=== PATIENT | female | born 1935 | race Caucasian/White ===

== ENCOUNTER 2016-10-08 05:58 | Inpatient (IN) | payer BC, OTHER ==
[2016-09-25 16:24] LABS: BASOPHILS 0.5 %; BASOPHILS ABSOLUTE 0.04 10/3/uL (0.0-0.16); EOSINOPHILS 1.2 %; EOSINOPHILS ABSOLUTE 0.09 10/3/uL (0.0-0.53); IMMATURE GRANULOCYTES 0.3 %; IMMATURE GRANULOCYTES ABSOLUTE 0.02 10/3/uL (0.0-0.11); LYMPHOCYTES 22.5 %; LYMPHOCYTES ABSOLUTE 1.75 10/3/uL (0.67-4.30); MEAN CORPUS HGB CONC 34.1 g/dL (32.0-36.0); MEAN CORPUSCULAR HEMOGLOB 29.4 pg (26.0-34.0); MEAN CORPUSCULAR VOLUME 86.3 fL (80-100); MONOCYTES 6.3 %; MONOCYTES ABSOLUTE 0.49 10/3/uL (0.21-1.20); NEUTROPHILS 69.2 %; PLATELET COUNT 208 10/3/uL (150-400); RBC DISTRIBUTION WIDTH 13.8 % (12.0-16.0); RED CELL COUNT 4.76 10/6/uL (4.0-5.6); WHITE BLOOD CELLS 7.8 10/3/uL (4.5-10.5)
[2016-09-25 16:28] LABS: HEMATOCRIT 41.1 % (36.0-48.0); MANUAL DIFF NO %
[2016-09-25 16:33] LABS: INTERNATIONAL NORMAL RATI 1.1 UNITS (-); PROTIME (NOT ORD) 13.8 SEC (12.0-14.5)
[2016-09-25 16:48] LABS: A/G RATIO 1.1 (0.7-1.9); ALKALINE PHOSPHATASE 83 U/L (45-117); BUN (BLOOD UREA NITROGEN) 24 MG/DL (6-23); CALCIUM, SERUM 9.2 MG/DL (8.5-10.4); CHLORIDE, SERUM 105 MMOL/L (96-112); CO2 (CARBON DIOXIDE) 30 MMOL/L (24-34); CREATININE 0.89 MG/DL (0.55-1.02); GFR AFRICAN AMERICAN 70 ML/MIN (>=60); GFR NON AFRICAN AMERICAN 61 ML/MIN (>=60); GLOBULIN 3.7 G/DL (2.5-4.1); GLUCOSE, SERUM 90 MG/DL (60-99); POTASSIUM, SERUM 4.1 MMOL/L (3.5-5.3); SGOT(AST) 13 U/L (5-40); SGPT(ALT) 23 U/L (5-65); SODIUM, SERUM 142 MMOL/L (135-148); TOTAL BILIRUBIN 0.5 MG/DL (0-1.2); TOTAL PROTEIN 7.7 G/DL (6.0-8.5)
[2016-09-25 17:45] LABS: ASCORBIC ACID (UR NOT ORDER) NEG (NEG); BILIRUBIN, URINE NEGATIVE (NEG); KETONE, URINE NEGATIVE (NEG); LEUKOCYTE ESTERASE(NOT OR NEG (NEG); WBC (NOT ORDERED) (RFLEX) 2 (0-5)
--- NOTE | ~2016-10-08 | OP ---
Record Of Operation [facility] [address] [place]. [address] NAME: RAYMUNDO RUEDA : 35 STATUS : ADM IN PAT#: [id number] AGE: 81 ADM/REG DATE : 10/08/16 MR#: [id number] REPORT SERV DATE: 10/08/16 DICTATED BY: CARLIE REBOLLEDO DATE: 10/08/16 REPORT STATUS : Draft TRANSCRIBED BY: MODLexie DATE: 10/08/16 DATE OF PROCEDURE: 10/08/2016 PREOPERATIVE DIAGNOSIS: Severe right hip degenerative joint disease. POSTOPERATIVE DIAGNOSIS: Severe right hip degenerative joint disease. PROCEDURE: Uncemented total hip arthroplasty, Tri-Lock. SIDE: Right. RESPIRATORY CARE ASSISTANT: ANESTHESIA: See chart. SIZE: See chart. ESTIMATED BLOOD LOSS: About 100 mL. INDICATIONS FOR SURGERY: PROCEDURE IN DETAIL: The patient was taken to the operating room and placed supine on the table without incident. Anesthetic was induced per the anesthesiologist. A Kimball catheter was placed by the nurse in the standard sterile technique. The correct side for the procedure was identified by preoperative markings and matched with the consent form. All personnel in the room were in agreement regarding the procedure, patient, and side. The patient was then carefully positioned and carefully padded and prepped and draped in the normal sterile fashion. The patient received prophylactic preoperative antibiotics at the appropriate time. The preoperative x-ray was brought up on the monitor. Again, this was reviewed with the staff in the room. According with the preoperative plan, and angled, an anterolateral incision was made centered over the trochanter extending from proximal posterior to distal anterior. Electrocautery was used to maintain meticulous hemostasis. The IT band was split in line with its fibers. A Charnley retractor was placed over saline moistened laps. A standard anterolateral approach to the hip was carried out dissecting in line with the vastus medialis fibers lifting the inferior 20% of the vastus medialis, proximally the interior 20% of the gluteus medius and gluteus minimus tendons off the anterior capsule. Periosteal elevator was used to elevate soft tissue gently directly off the proximal anterior femoral bone. Appropriate retractors were carefully placed. Complete anterior capsulectomy was performed. The hip was then carefully dislocated with a combination of traction maneuver by the physician assistant primary care and scooping the ball out of the socket with a Hohmann. A femoral neck osteotomy was marked according to what had been preoperatively planned with a broach as a template. The distance for the femoral neck osteotomy was measured with a ruler. A femoral neck osteotomy was made with an oscillating saw under appropriate retraction. Meticulous hemostasis was again obtained. The leg was then brought up out of the anterior bag and Record Of Operation [facility] [id number] [place]. [address] NAME: RAYMUNDO RUEDA : 35 STATUS : ADM IN PAT#: [id number] AGE: 81 ADM/REG DATE : 10/08/16 MR#: [id number] REPORT SERV DATE: 10/08/16 DICTATED BY: CARLIE REBOLLEDO DATE: 10/08/16 REPORT STATUS : Draft TRANSCRIBED BY: PATITO DATE: 10/08/16 positioned with the lower extremity in external rotation and slight flexion. Acetabular retractors were placed carefully palpating to be sure that they were directly on the bone. The acetabular labrum was excised with electrocautery and rongeur. Pulvinar fat was removed with a large curette and rongeur and again meticulous hemostasis was obtained. Sequential reamers were used in the acetabulum to 1 mm. less than the final size which was chosen. This was felt to give excellent interference fit. The acetabular fossa was then copiously irrigated with pulsatile lavage and actual acetabular component was placed and impacted and checked to make sure it was down snug. The overall alignment was checked. The acetabular acid supervisor was then removed. Screws were placed in the standard fashion. A drill, depth gauge and self tapping screw placement taking care not to plunge as the drill holes were carefully placed. A trial liner was then placed and attention directed back to the proximal femur. The leg was placed back into the anterior bag. The proximal femur was prepared using a box chisel following by a T-handled reamer to determine the intramedullary alignment. This was followed by sequential broaches up to the final broach. Once it was seated in the appropriate position, a Calcar reamer was used to plane the proximal femur. Trial reduction was then done with a trial prosthetic ball and neck. A straight edge was used to compare the tip of the trochanter to center of the ball relationship to what had been noted on the preoperative x-ray. Careful reduction was then done of the total hip. Palpation was done to ascertain and compare leg lengths by palpating the nonoperative leg and also by checking soft tissue tension. The stability of the hip was checked in full extension with full external rotation and in full flexion with adduction, flexion and internal rotation. The hip was then redislocated with a bone hook. The femoral trial and femoral broach were removed. The acetabulum was then prepared under appropriate retraction by removing the trial liner. A central hole eliminator was placed and tightened. The shell was irrigated out. The actual insert was placed and impacted and then checked to be sure it was down snug with a joker. The leg was again positioned in the bag. The proximal femur exposed, irrigated and the actual thermal prosthesis was taken from the compliance representative dealer and impacted. Once it was down, the trunnion was cleansed with a wet and dry lap and the prosthetic thermal head was placed and impacted and checked to be sure it was down snug. The acetabulum was irrigated and reduction was obtained. Again, we checked soft tissue tension, leg length and stability as described above. The hip was closed in a layered fashion with a 5 mm. Mersilene tape placed through a single drill hole in the proximal anterior/superior trochanter reattaching the gluteus medius and minimus fibers. The vastus lateralis, gluteus medius, and gluteus minimus were then closed in a sleeve. Drain was placed between the vastus and the IT band exiting distally anteriorly. The IT band was closed. Subcutaneous closure and skin closure were then obtained. A sterile dressing was applied. The patient was carefully positioned into a supine position and then awakened. The patient was then carefully transferred to the stretcher to be returned to the postoperative care unit without incident. COMPLICATION: None. SPECIMENS: Right femoral head. Record Of Operation [place] [id number] [facility] [place] [place]. [address] NAME: RAYMUNDO RUEDA Lisa : 35 STATUS : ADM IN [facility]#: [id number] AGE: 81 ADM/REG DATE : 10/08/16 MR#: [id number] REPORT SERV DATE: 10/08/16 DICTATED BY: CARLIE REBOLLEDO DATE: 10/08/16 REPORT STATUS : Draft TRANSCRIBED BY: PATITO DATE: 10/08/16 WTB/MODL Pamella Rebolledo M.D. / [id number] CC: Pamella Rebolledo M.D.
--- NOTE | ~2016-10-08 | DS ---
Discharge Summary [facility] [address] [place]. [address] NAME: RAYMUNDO RUEDA : 35 STATUS : DIS IN PAT#: [id number] AGE: 81 ADM/REG DATE : 10/08/16 MR#: [id number] REPORT SERV DATE: 10/22/16 DICTATED BY: CARLIE REBOLLEDO DATE: 10/22/16 REPORT STATUS : Draft TRANSCRIBED BY: PATITO DATE: 10/22/16 Data Collection from hospitalization DISCHARGE DIAGNOSES: 1. Severe right hip degenerative joint disease. 2. Hypertension. 3. Adult-onset diabetes mellitus. 4. Anxiety disorder. 5. Former smoker. CONSULTATIONS: None. PROCEDURES: Uncemented total hip arthroplasty, Tri-Lock, 10/08/2016. PATHOLOGY: Femoral head, right hip joint replacement-marked articular changes of osteoarthritis, hematopoietic elements were present and showed trilineage maturation. No evidence of infection or tumor. DISCHARGE MEDICATIONS: Xanax 1 mg twice a day as needed; vitamin B12, 1000 mcg sublingually daily; hydrochlorothiazide 25 mg daily; [place] 5/325 one tablet every four to six hours as needed; Glucophage 500 mg with breakfast and supper; Zofran 4 mg every six hours as needed; Ultram 50 mg every six hours as needed; Coumadin 2.5 mg daily. She was instructed not to continue Goody's headache powders. CONDITION ON DISCHARGE: Stable. DISPOSITION: The patient was discharged home to be followed by Home Health Care on an 1800- calorie diabetic diet with activities as instructed. She would follow up with me two weeks following discharge. HOSPITAL COURSE: This is an 81-year-old female, who had complaints of gamna-ow-idjqis intermittent right knee pain as well as myglp-ii-avvkku intermittent right hip pain. The approximate date of onset was three years. The location of the knee pain is mediolateral across the patella and behind the knee. The location of the hip pain is anterior/groin posterior and greater trochanter. The patient has severe right hip degenerative joint disease. Treatment options were discussed, and it was elected to proceed with surgical intervention. She was admitted to the hospital at this time for further evaluation and treatment. Upon admission, the patient was taken to the operating room, where she underwent the abovementioned procedure, she tolerated this well, and there were no complications. On postop day one, she was evaluated by Occupational and Physical Therapy. She was up, sitting in a bedside chair. She did complain of some nausea that morning. Sliding scale insulin was provided. Xanax was being given for her anxiety. Hydrochlorothiazide was continued. On postop day two, her confusion had improved. She had some nausea, which was better at this time. OBI hose were in place. Metformin was continued as well. Over the next couple of days, she continued to progress. Discharge planning was performed. On 10/12/2016, discharge instructions were given. Due to her improved and stable condition, she was Discharge Summary [address] [address] NAME: RAYMUNDO RUEDA : 35 STATUS : DIS IN PAT#: [id number] AGE: 81 ADM/REG DATE : 10/08/16 MR#: [id number] REPORT SERV DATE: 10/22/16 DICTATED BY: CARLIE REBOLLEDO DATE: 10/22/16 REPORT STATUS : Draft TRANSCRIBED BY: PATITO DATE: 10/22/16 discharged home to be followed by Home Health Care with the above-stated instructions. Information collected by: Kiara Santamaria I submit the above information as my discharge summary. JUN/PATITO Pamella Rebolledo M.D. / [id number] CC: Judah Gutiérrez M.D.
[~2016-10-08 05:58] MED LIST: ESTROGEN IM; FISH-EPA1000 MG PO; GLUCPH PO; GOODY'S EX-STR1 EAC1 PO; HYDROCHLOROT25 MG PO; MACRO50B PO; NORCO1 TA1 PO; NORV10 PO; VITAMIN B-121000 MC1 SL; XANAX1 MG PO
[2016-10-09 05:33] LABS: HEMATOCRIT 29.1 % (36.0-48.0); HEMOGLOBIN 9.5 g/dL (12.0-16.0)
[2016-10-09 05:38] LABS: INTERNATIONAL NORMAL RATI 1.3 UNITS (-); PROTIME (NOT ORD) 15.6 SEC (12.0-14.5)
[2016-10-09 05:45] LABS: CALCIUM, SERUM 8.3 MG/DL (8.5-10.4); CHLORIDE, SERUM 102 MMOL/L (96-112); CO2 (CARBON DIOXIDE) 33 MMOL/L (24-34); CREATININE 1.02 MG/DL (0.55-1.02); GFR AFRICAN AMERICAN 60 ML/MIN (>=60); GFR NON AFRICAN AMERICAN 52 ML/MIN (>=60); POTASSIUM, SERUM 4.7 MMOL/L (3.5-5.3); SODIUM, SERUM 138 MMOL/L (135-148)
[2016-10-09 05:48] LABS: BUN (BLOOD UREA NITROGEN) 29 MG/DL (6-23); GLUCOSE, SERUM 124 MG/DL (60-99)
[2016-10-10 04:51] LABS: BASOPHILS 0.1 %; BASOPHILS ABSOLUTE 0.01 10/3/uL (0.0-0.16); EOSINOPHILS 0.1 %; EOSINOPHILS ABSOLUTE 0.01 10/3/uL (0.0-0.53); HEMATOCRIT 27.3 % (36.0-48.0); HEMOGLOBIN 9.2 g/dL (12.0-16.0); IMMATURE GRANULOCYTES 0.3 %; IMMATURE GRANULOCYTES ABSOLUTE 0.04 10/3/uL (0.0-0.11); LYMPHOCYTES 6.1 %; LYMPHOCYTES ABSOLUTE 0.76 10/3/uL (0.67-4.30); MEAN CORPUS HGB CONC 33.7 g/dL (32.0-36.0); MEAN CORPUSCULAR HEMOGLOB 29.2 pg (26.0-34.0); MEAN CORPUSCULAR VOLUME 86.7 fL (80-100); MEAN PLATELET VOLUME 11.6 fL (9.2-13.0); MONOCYTES 7.9 %; MONOCYTES ABSOLUTE 0.98 10/3/uL (0.21-1.20); NEUTROPHILS 85.5 %; NEUTROPHILS ABSOLUTE 10.65 10/3/uL (2.02-8.40); RBC DISTRIBUTION WIDTH 13.7 % (12.0-16.0)
[2016-10-10 04:52] LABS: MANUAL DIFF NO %; PLATELET COUNT 130 10/3/uL (150-400); RED CELL COUNT 3.15 10/6/uL (4.0-5.6); WHITE BLOOD CELLS 12.5 10/3/uL (4.5-10.5)
[2016-10-10 04:59] LABS: INTERNATIONAL NORMAL RATI 1.5 UNITS (-); PROTIME (NOT ORD) 17.6 SEC (12.0-14.5)
[2016-10-10 05:07] LABS: BUN (BLOOD UREA NITROGEN) 29 MG/DL (6-23); CALCIUM, SERUM 8.7 MG/DL (8.5-10.4); CHLORIDE, SERUM 104 MMOL/L (96-112); CREATININE 0.96 MG/DL (0.55-1.02); GFR AFRICAN AMERICAN 64 ML/MIN (>=60); GFR NON AFRICAN AMERICAN 55 ML/MIN (>=60); GLUCOSE, SERUM 114 MG/DL (60-99); POTASSIUM, SERUM 4.8 MMOL/L (3.5-5.3); SODIUM, SERUM 139 MMOL/L (135-148)
[2016-10-10 05:10] LABS: CO2 (CARBON DIOXIDE) 28 MMOL/L (24-34)
[2016-10-11 05:02] LABS: HEMATOCRIT 27.9 % (36.0-48.0); HEMOGLOBIN 9.3 g/dL (12.0-16.0)
[2016-10-11 05:06] LABS: INTERNATIONAL NORMAL RATI 1.6 UNITS (-); PROTIME (NOT ORD) 18.8 SEC (12.0-14.5)
[2016-10-12 05:49] LABS: INTERNATIONAL NORMAL RATI 1.6 UNITS (-); PROTIME (NOT ORD) 18.8 SEC (12.0-14.5)
[2016-10-12] MEDS ORDERED: NORCO1 TA1 PO (11:10)
[2016-10-12] MEDS ORDERED: C25 PO (11:11)
[2016-10-12] MEDS ORDERED: ULTRAM50 PO (11:11)
[2016-10-12] MEDS ORDERED: ZOFRAN4 PO (11:12)
== END 2016-10-12 13:25 | disposition home health service (06) | DRG 470 ==
LOC: SDC/OF 05:58 → PACU 09:48 → 3JRC 12:00
PROVIDERS: Specialist
PROC: 0SR902A Replacement of Right Hip Joint with Metal on Polyethylene Synthetic Substitute, Uncemented, Open Approach (ICD-10-PCS; principal; 2016-10-08 07:45)
DX: M16.11 Unilateral primary osteoarthritis, right hip (principal); E11.9 Type 2 diabetes mellitus without complications; I10 Essential (primary) hypertension; F41.9 Anxiety disorder, unspecified; Z90.710 Acquired absence of both cervix and uterus; Z87.891 Personal history of nicotine dependence; R11.0 Nausea
CPT/HCPCS: 36415; 71020; 72170; 80048; 80053; 81001; 82962; 85014; 85018; 85025; 85610; 86850; 86900; 86901; 87641; 88304; 88311; 93005; 97110-GP; 97116-GP; 97161-GP; 97165-GO; 97535-GO; A9270-GY; C1713; C1776; J0690; J1885; J2270; J2274; J2405; J2795; J3010